=== PATIENT | female | born 1940 | race Caucasian/White ===

== ENCOUNTER 2024-11-12 06:03 | Observation (INO) ==
--- NOTE | 2024-11-12 06:12 | Emergency Department Note ---
HPI - General Adult General Chief complaint: SOB -Shortness of Breath Stated complaint: SHORTNESS OF BREATH Time Seen by Provider: 11/12/24 06:06 Source: caregiver Mode of arrival: walk-in Limitations: no limitations History of Present Illness HPI narrative: This is a 84 year old female patient that [facility] staff patient has hx of pnenumonia, and RSV and her O2 sats have been 85% RA for them. On arrival to the ER here patients O2 sat was 86-90%RA. patient has a hx of dementia Related Data Home Medications Medication Instructions Recorded Confirmed acetaminophen 650 mg 650 mg PO Q6H PRN pain 11/01/24 11/01/24 tablet,extended release (8HR Muscle Aches-Pain) alprazolam 0.5 mg tablet 0.5 mg PO DAILY 11/01/24 11/01/24 amlodipine 5 mg tablet 5 mg PO DAILY 11/01/24 11/01/24 aspirin 325 mg tablet 325 mg PO DAILY 11/01/24 11/01/24 cyanocobalamin (vitamin B-12) 1,000 mcg IM Q30D 11/01/24 11/01/24 1,000 mcg/mL injection solution dextran 70-hypromellose eye drops 1 drp ophthalmic (eye) Q6H PRN dry 11/01/24 11/01/24 (Artificial Tears (dextran eye(s) 70-hypromellose) eye drops) diclofenac sodium 1 % topical gel 2 g topical TID 11/01/24 11/01/24 docusate sodium 50 mg/5 mL oral 100 mg PO DAILY 11/01/24 11/01/24 liquid famotidine 40 mg tablet 40 mg PO DAILY 11/01/24 11/01/24 fluoxetine 40 mg capsule 40 mg PO DAILY 11/01/24 11/01/24 glipizide 5 mg tablet 5 mg PO BIDWM 11/01/24 11/01/24 guaifenesin 100 mg/5 mL oral 200 mg PO Q6H PRN cough 11/01/24 11/01/24 liquid (Emily-Tussin) insulin aspart 1 sliding scale dose subcut ACHS 11/01/24 11/01/24 (niacinamide)(U-100) 100 unit/mL(3 mL) subcutaneous pen (Fiasp FlexTouch U-100 Insulin) insulin glargine 100 unit/mL (3 20 unit subcut BID 11/01/24 11/01/24 mL) subcutaneous pen (Basaglar KwikPen U-100 Insulin) losartan 100 mg tablet 100 mg PO DAILY 11/01/24 11/01/24 meloxicam 7.5 mg tablet 7.5 mg PO QDCC 11/01/24 11/01/24 memantine 10 mg tablet 10 mg PO BID 11/01/24 11/01/24 nystatin 100,000 unit/gram topical 1 applic topical Q12H 11/01/24 11/01/24 powder rivastigmine tartrate 3 mg capsule 3 mg PO BID 11/01/24 11/01/24 sitagliptin phosphate 50 mg tablet 50 mg PO DAILY 11/01/24 11/01/24 (Januvia) Previous Rx's Medication Instructions Recorded albuterol sulfate 90 mcg/actuation 2 puff inhalation Q6H rsv #8.5 11/04/24 aerosol inhaler grams famotidine 40 mg tablet (Pepcid) 40 mg PO BID gerd #20 tabs 11/04/24 levofloxacin 500 mg tablet 500 mg PO Q24H pneumonia #4 tabs 11/04/24 Allergies Allergy/AdvReac Type Severity Reaction Status Date / Time No Known Drug Allergies Allergy Verified 11/12/24 06:19 Review of Systems Status of ROS unobtainable due to mental status [facility] Medical History (Updated 11/07/24 @ 00:00 by ) Chronic ethmoidal sinusitis Diaphragmatic hernia Depression Dementia Vitamin B12 deficiency (dietary) anemia Hx of constipation Dysphagia Osteoarthritis Pacemaker GERD (gastroesophageal reflux disease) ADALGISA (generalized anxiety disorder) HTN (hypertension) HLD (hyperlipidemia) DM (diabetes mellitus) Alzheimer disease Social History Smoking status: never smoker Problems where you live: no known problems Highest level of school completed/degree received: decline to answer Feel stressed/tense/nervous/anxious/difficulty sleeping: not at all Life stressor details: unable to answer although patient is anxious alot Exam Constitutional: normal general appearance and no apparent distress Vital Signs - 24 hr 11/12/24 06:03 11/12/24 06:18 11/12/24 06:42 Temperature 98.7 F Pulse Rate 97 H 89 Respiratory Rate 24 20 Blood Pressure 131/64 131/64 Pulse Oximetry 90 L 93 L 98 Oxygen Delivery Me thod Room Air Nasal Cannula Oxygen Flow Rate 2 HENMT: normocephalic, head/scalp atraumatic, hearing grossly normal bilaterally, external ears normal, nasal mucous membranes normal, external nose normal, oral mucous membranes normal and oropharynx normal Eyes: PERRL, EOMs intact bilaterally, conjunctivae normal and no scleral icterus Neck/C-Spine: visual inspection normal and trachea midline Lymph: no lymphadenopathy noted Chest: inspection of chest normal Respiratory: breath sounds equal bilaterally, normal respiratory effort, aus cultation abnormal (diminished breath sound), wheezing noted (scattered wheezes), no rales, no retractions, no use of accessory muscles and chest percussion normal Cardiovascular: normal heart rate noted, regular rhythm noted, no gallop, no rub, no murmur, no JVD, no clicks, peripheral pulses 2+ throughout, no bruits noted and no additional abnormal heart sounds Gastrointestinal: abdomen normal to inspection, abdomen soft to palpation, nontender to palpation, nontender to percussion, nondistended, normoactive bowel sounds, no hepatosplenomegaly, no masses, no pulsatile mass, no ascites and no hernia Back/Pelvis: spine normal to inspection Extremities: normal to inspection, normal to palpation, no tenderness, full ROM, no joint enlargement and no deformity Neurology: Alert, verbal with confusion (normal for patient per NH staff hx of dementia) Psychiatry: Alert, verbal with confusion (normal for patient per NH staff hx of dementia) Skin: skin color normal Course Course Hospital Course: 714: Spoke to son Chico Tsang and informed him the patient was here ( his mom) and that her pneumonia was worse and needed to be transferred for pulmonology services and possible bronchoscopy. Son stated he did not want his mom transferred at this time and did not want his mom to have a bronchoscopy at this time and that is she worsens he will think about it but at this time he does not want either transfer or bronchoscopy. Patient resting comfortably, VSS, no s/s of acute distress noted. O2 sat 94% 2LNC. Spoke to Dr Kirkpatrick about the case and the sons wishes and she has accepted patient to the medical floor for further evaluation and treatment Vital Signs Vital signs: Vital Signs Temperature 98.7 F 11/12/24 06:03 Pulse Rate 97 H 11/12/24 06:03 Respiratory Rate 24 11/12/24 06:03 Blood Pressure 131/64 11/12/24 06:03 Pulse Oximetry 90 L 11/12/24 06:03 Oxygen Delivery Method Room Air 11/12/24 06:03 Temperature 98.7 F 11/12/24 06:03 Pulse Rate 89 11/12/24 06:42 Respiratory Rate 20 11/12/24 06:42 Blood Pressure 131/64 11/12/24 06:42 Pulse Oximetry 98 11/12/24 06:42 Oxygen Delivery Method Nasal Cannula 11/12/24 06:42 Oxygen Flow Rate 2 11/12/24 06:42 Medical Decision Making Differential Diagnosis Differential Diagnosis: viral illness, URI, bronchitis, pneumonia Medical Records Medical records reviewed: Yes I reviewed the patient's medical records Lab Data Lab results reviewed: Yes I reviewed the patient's lab results Labs: Lab Results 11/12/24 11/12/24 Range/Units 06:15 06:25 WBC 14.5 H (4.3-9.3) K/uL RBC 3.5 L (4.00-5.50) M/uL Hgb 10.0 L (12.5-15.8) gm/dL Hct 30.4 L (35.9-46.7) % MCV 87.0 (81.0-93.7) fl MCH 28.6 (27.6-32.2) pg MCHC 32.9 L (33.1-35.3) g/dl RDW 14.2 (11.4-14.2) % Plt Count 276 (152-353) K/uL MPV 8.0 (6.9-10.8) fl Gran % 86.3 H (47.8-71.3) % Lymph % (Auto) 5.3 L (20.0-43.0) % [place] % (Auto) 5.4 (3.6-9.8) % Eos % (Auto) 2.6 (0.4-2.8) % Baso % (Auto) 0.4 (0.1-0.85) Lymph # (Auto) 0.8 L (1.1-3.1) [place] # (Auto) 0.8 L (1.1-3.1) Eos # (Auto) 0.4 H (0.0-0.2) Baso # (Auto) 0.1 (0.0-0.1) Absolute Gran (auto) 12.6 H (2.3-6.0) Sodium 139 (136-145) mmol/L Potassium 4.3 (3.6-5.2) mmol/L Chloride 105.0 (98-107) mmol/L Carbon Dioxide 23 (21-32) mmol/L Anion Gap 11.0 (4-14) mEq/L BUN 19 H (7-18) mg/dL Creatinine 1.4 H (0.6-1.3) mg/dL Estimated GFR 37.6 (>59.9) Glucose 148 H (70-110) mg/dL Calcium 8.8 (8.5-10.1) mg/dL Total Bilirubin 0.45 (0.0-1.0) mg/dL AST 20 (15-37) U/L ALT 11 L (30-65) U/L Alkaline Phosphatase 123 (50-136) U/L Troponin I High Sens 29.20 (4.0-60.4) ng/L B-Natriuretic Peptide 474.0 H (0-100) pg/mL Total Protein 7.3 (6.4-8.2) g/dL Albumin 2.1 L (3.4-5.0) g/dL Influenza Type A Ag Negative (Negative) Influenza Type B Ag Negative (Negative) Respiratory Virus Ag Positive (Negative) Imaging Data Chest x-ray: Attestation: I have reviewed the pertinent imaging results. ECG Data Attestation: I have reviewed the pertinent ECG results. Discharge Plan Discharge Patient Disposition: Admitted As Observation Condition: Stable Chief Complaint: SOB -Shortness of Breath Clinical Impression: Pneumonia, Hypoxia, Dementia Prescriptions: No Action alprazolam 0.5 mg tablet 0.5 mg PO DAILY glipizide 5 mg tablet 5 mg PO BIDWM insulin glargine [Basaglar KwikPen U-100 Insulin] 100 unit/mL (3 mL) insulin pen 20 unit SUBCUT BID Fiasp FlexTouch U-100 Insulin 100 unit/mL (3 mL) insulin pen 1 sliding scale dose SUBCUT ACHS guaifenesin [Emily-Tussin] 100 mg/5 mL liquid 200 mg PO Q6H PRN (Reason: cough) nystatin 100,000 unit/gram powder 1 applic topical Q12H fluoxetine 40 mg capsule 40 mg PO DAILY diclofenac sodium 1 % gel 2 g TOPICAL TID Patient Comments: APPLY TO 2GM LINE AND APPLY TO PAINFUL AREAS 3 TIMES A DAY--RUB IN WELL--- docusate sodium 50 mg/5 mL liquid 100 mg PO DAILY Januvia 50 mg tablet 50 mg PO DAILY cyanocobalamin (vitamin B-12) 1,000 mcg/mL solution 1,000 mcg IM Q30D Patient Comments: DUE ON THE 7TH OF EACH MONTH Artificial Tears([id number]) Drops 1 drp ophthalmic (eye) Q6H PRN (Reason: dry eye(s)) Rx Instructions: BOTH EYES amlodipine 5 mg tablet 5 mg PO DAILY famotidine 40 mg tablet 40 mg PO DAILY losartan 100 mg tablet 100 mg PO DAILY acetaminophen [8HR Muscle Aches-Pain] 650 mg tablet extended release 650 mg PO Q6H PRN (Reason: pain) meloxicam 7.5 mg tablet 7.5 mg PO QDCC aspirin 325 mg tablet 325 mg PO DAILY rivastigmine tartrate 3 mg capsule 3 mg PO BID memantine 10 mg tablet 10 mg PO BID levofloxacin 500 mg tablet 500 mg PO Q24H Qty: 4 0RF famotidine [Pepcid] 40 mg tablet 40 mg PO BID Qty: 20 0RF albuterol sulfate 90 mcg/actuation HFA aerosol inhaler 2 puff inhalation Q6H Qty: 8.5 0RF Rx Instructions: with a spacer Print Language: Czech Referrals: Omid Stratton MD [Primary Care Provider] - Time of Disposition: 07:24
[2024-11-12] MEDS: IPRATROPIUM/ALBUTEROL SULFATE 3 ML AMPUL.NEB INH ONE (06:18)
[2024-11-12] MEDS: BUDESONIDE 0.5 MG/2 ML AMPUL.NEB INH ONE (06:18)
[2024-11-12 06:30] LABS: Basophils #(Absolute) Auto 0.1 (0.0-0.1); Basophils%(Percent) Auto 0.4 (0.1-0.85); Eosinophils#(Absolute)Auto 0.4 (0.0-0.2); Eosinophils%(Percent) Auto 2.6 % (0.4-2.8); Granulocytes % - Auto 86.3 % (47.8-71.3); Granulocytes#(Absolute)- Auto 12.6 (2.3-6.0); Hematocrit 30.4 % (35.9-46.7); Monocytes #(Absolute)- Auto 0.8 (1.1-3.1); Monocytes %(Percent)- Auto 5.4 % (3.6-9.8); Platelet Count 276 K/uL (152-353); White Blood Count 14.5 K/uL (4.3-9.3)
[2024-11-12] MEDS: METHYLPREDNISOLONE SOD SUCC/PF 125 MG/2 ML VIAL IVP ONE (06:37)
[2024-11-12 06:39] LABS: Potassium 4.3 mmol/L (3.6-5.2)
[2024-11-12] MEDS ORDERED: 0.9 % SODIUM CHLORIDE 50 ML IV ONE (07:22)
[2024-11-12] MEDS ORDERED: CEFTRIAXONE SODIUM 1 GM VIAL ONE (07:22)
[2024-11-12] MEDS ORDERED: AZITHROMYCIN 500 MG VIAL ONE (07:22)
[2024-11-12] MEDS ORDERED: 0.9 % SODIUM CHLORIDE 250 ML IV ONE (07:22)
[2024-11-12] MEDS: AZITHROMYCIN 500 MG 500 MG in 0.9 % SODIUM CHLORIDE 250 ML IV ONE (07:29)
[2024-11-12] MEDS: CEFTRIAXONE SODIUM 1 GM in 0.9 % SODIUM CHLORIDE MB+ 50 ML IV STA (07:29)
[2024-11-12] MEDS: IPRATROPIUM/ALBUTEROL SULFATE 3 ML AMPUL.NEB INH SCH ×2 (12:04→15:42)
[2024-11-12 12:30] LABS: PCO2 ABG 31 mmHg (35-45); PO2 ABG 69 mmHg (60-100); pH ABG 7.44 (7.35-7.45)
[2024-11-12 12:31] LABS: Base Excess ABG -2.2 mmo1/L (-2-2); Oxygen Saturation ABG 94 % (92-100)
[2024-11-12] MEDS: FLUOXETINE HCL 20 MG CAPSULE PO SCH (13:00)
[2024-11-12] MEDS: AMLODIPINE BESYLATE 5 MG TABLET PO SCH (13:00)
[2024-11-12] MEDS: RIVASTIGMINE TARTRATE 1.5 MG CAPSULE PO SCH (13:00)
[2024-11-12] MEDS: ENOXAPARIN SODIUM 40 MG/0.4 ML SYRINGE SUBQ SCH (13:00)
[2024-11-12] MEDS ORDERED: MAGNESIUM, ALUMINUM HYDROXIDE 30 ML ORAL.SUSP PO PRN (13:00)
[2024-11-12] MEDS ORDERED: bisacodyL 10 MG SUPP.RECT PR PRN (13:00)
[2024-11-12] MEDS ORDERED: ACETAMINOPHEN 500 MG TABLET PO PRN (13:00)
[2024-11-12] MEDS: ASPIRIN 325 MG TABLET PO SCH (13:00)
[2024-11-12] MEDS: SITAGLIPTIN PHOSPHATE 50 MG TABLET PO SCH (13:00)
[2024-11-12] MEDS: MEMANTINE HCL 5 MG TABLET PO SCH (13:00)
[2024-11-12] MEDS: LOSARTAN POTASSIUM 50 MG TABLET PO SCH (13:00)
[2024-11-12] MEDS: VANCOMYCIN HCL 500 MG 500 MG in 0.9 % SODIUM CHLORIDE MB+ 100 ML IV SCH (15:00)
[2024-11-12] MEDS: GLIMEPIRIDE 2 MG TABLET PO SCH (16:30)
[2024-11-12] MEDS ORDERED: GLIPIZIDE 5 MG PO SCH (16:30)
--- NOTE | 2024-11-12 17:12 | History & Physical Report ---
H&P: HPI History of Present Illness Chief complaint: worsening of pneumonia, hypoxia Narrative: This is a 84 year old female patient that presents to the ER from the assisted with c/o per assisted staff patient has hx of pneumonia, and RSV and her O2 sats have been 85% RA for them. On arrival to the ER here patients O2 sat was 86-90% RA. patient has a hx of dementia. Admitted patient to med/surg for further observation and treatment. Review of Systems Status of ROS unobtainable due to mental status PFSH PFS Medical History Chronic ethmoidal sinusitis Diaphragmatic hernia Depression Dementia Vitamin B12 deficiency (dietary) anemia Hx of constipation Dysphagia Osteoarthritis Pacemaker GERD (gastroesophageal reflux disease) ADALGISA (generalized anxiety disorder) HTN (hypertension) HLD (hyperlipidemia) DM (diabetes mellitus) Alzheimer disease Social History Smoking status: never smoker Problems where you live: no known problems Highest level of school completed/degree received: high school Feel stressed/tense/nervous/anxious/difficulty sleeping: not at all Life stressor details: unable to answer although patient is anxious alot Meds Home Medications and Allergies Home Medications Medication Instructions Recorded Confirmed Type acetaminophen 650 mg 650 mg PO Q6H PRN pain 11/01/24 11/12/24 History tablet,extended release (8HR Muscle Aches-Pain) alprazolam 0.5 mg tablet 0.5 mg PO Q24H PRN anxiety 11/01/24 11/12/24 History amlodipine 5 mg tablet 5 mg PO DAILY 11/01/24 11/12/24 History aspirin 325 mg tablet 325 mg PO DAILY 11/01/24 11/12/24 History cyanocobalamin (vitamin B-12) 1,000 mcg IM Q30D 11/01/24 11/12/24 History 1,000 mcg/mL injection solution dextran 70-hypromellose eye drops 1 drp ophthalmic (eye) Q6H PRN dry 11/01/24 11/12/24 History (Artificial Tears (dextran eye(s) 70-hypromellose) eye drops) diclofenac sodium 1 % topical gel 2 g topical TID 11/01/24 11/12/24 History docusate sodium 50 mg/5 mL oral 100 mg PO DAILY 11/01/24 11/12/24 History liquid famotidine 40 mg tablet 40 mg PO DAILY 11/01/24 11/12/24 History fluoxetine 40 mg capsule 40 mg PO DAILY 11/01/24 11/12/24 History glipizide 5 mg tablet 5 mg PO BIDWM 11/01/24 11/12/24 History guaifenesin 100 mg/5 mL oral 200 mg PO Q6H PRN cough 11/01/24 11/12/24 History liquid (Emily-Tussin) insulin aspart 1 sliding scale dose subcut ACHS 11/01/24 11/12/24 History (niacinamide)(U-100) 100 unit/mL(3 mL) subcutaneous pen (Fiasp FlexTouch U-100 Insulin) insulin glargine 100 unit/mL (3 20 unit subcut BID 11/01/24 11/12/24 History mL) subcutaneous pen (Basaglar KwikPen U-100 Insulin) losartan 100 mg tablet 100 mg PO DAILY 11/01/24 11/12/24 History memantine 10 mg tablet 10 mg PO BID 11/01/24 11/12/24 History nystatin 100,000 unit/gram topical 1 applic topical Q12H 11/01/24 11/12/24 History powder rivastigmine tartrate 3 mg capsule 3 mg PO BID 11/01/24 11/12/24 History sitagliptin phosphate 50 mg tablet 50 mg PO DAILY 11/01/24 11/12/24 History (Januvia) albuterol sulfate 90 mcg/actuation 2 puff inhalation Q6H rsv #8.5 11/04/24 11/12/24 Rx aerosol inhaler grams Allergies Allergy/AdvReac Type Severity Reaction Status Date / Time No Known Drug Allergies Allergy Verified 11/12/24 06:19 Exam Exam: Patient in roy's position upon entering room for exam. Constitutional: normal general appearance, no apparent distress, abnormal body habitus (overweight), limitations noted (altered mental status) and alert Vital Signs - 24 hr 11/12/24 06:03 11/12/24 06:18 11/12/24 06:42 Temperature 98.7 F Pulse Rate 97 H 89 Respiratory Rate 24 20 Blood Pressure 131/64 131/64 Pulse Oximetry 90 L 93 L 98 Oxygen Delivery Me thod Room Air Nasal Cannula Oxygen Flow Rate 2 11/12/24 07:45 11/12/24 08:45 11/12/24 09:40 Temperature Pulse Rate 94 H 88 88 Respiratory Rate 20 20 Blood Pressure 116/69 121/60 116/55 Pulse Oximetry 91 L 94 L 94 L Oxygen Delivery Me thod Nasal Cannula Nasal Cannula Nasal Cannula Oxygen Flow Rate 2 2 2 11/12/24 12:08 11/12/24 15:43 Temperature Pulse Rate Respiratory Rate Blood Pressure Pulse Oximetry 96 94 L Oxygen Delivery Me thod Oxygen Flow Rate HENMT: normocephalic, head/scalp atraumatic, hearing grossly normal bilaterally, external ears normal, nasal mucous membranes normal, external nose normal, oral mucous membranes normal and oropharynx normal Eyes: PERRL, EOMs intact bilaterally, conjunctivae normal and no scleral icterus Neck/C-Spine: visual inspection normal and trachea midline Lymph: no lymphadenopathy noted Chest: inspection of chest normal Respiratory: breath sounds equal bilaterally, normal respiratory effort, auscultation abnormal (diminished breath sound), wheezing noted (scattered wheezes), no rales, no retractions, no use of accessory muscles and chest per cussion normal Cardiovascular: normal heart rate noted, regular rhythm noted, no gallop, no rub, no murmur, no JVD, no clicks, peripheral pulses 2+ throughout, no bruits noted and no additional abnormal heart sounds Gastrointestinal: abdomen normal to inspection, abdomen soft to palpation, nontender to palpation, nontender to percussion, nondistended, normoactive bowel sounds, no hepatosplenomegaly, no masses, no pulsatile mass, no ascites and no hernia Back/Pelvis: spine normal to inspection Extremities: normal to inspection, normal to palpation, no tenderness, full ROM, no joint enlargement and no deformity Neurology: Alert, verbal with confusion (normal for patient per NH staff hx of dementia) Psychiatry: Alert, verbal with confusion (normal for patient per NH staff hx of dementia) Skin: skin color normal Assessment and Plan Assessment and Plan (1) Pneumonia: Qualifiers: Pneumonia type: due to unspecified organism Laterality: bilateral Lung location: lower lobe of lung Qualified Code(s): J18.9 - Pneumonia, unspecified organism Code(s): J18.9 - Pneumonia, unspecified organism (2) Hypoxia: Code(s): R09.02 - Hypoxemia (3) AMS (altered mental status): Qualifiers: Altered mental status type: somnolence Qualified Code(s): R40.0 - Somnolence Code(s): R41.82 - Altered mental status, unspecified (4) Dementia: Qualifiers: Dementia type: vascular dementia Dementia severity: severe Dementia behavioral or psychological symptom: unspecified whether behavioral, psychotic, or mood disturbance or anxiety Qualified Code(s): F01.C0 - Vascular dementia, severe, without behavioral disturbance, psychotic disturbance, mood disturbance, and anxiety Code(s): F03.90 - Unspecified dementia, unspecified severity, without behavioral disturbance, psychotic disturbance, mood disturbance, and anxiety (5) Anemia: Qualifiers: Anemia type: unspecified type Qualified Code(s): D64.9 - Anemia, unspecified Code(s): D64.9 - Anemia, unspecified (6) Hypoalbuminemia: Code(s): E88.09 - Other disorders of plasma-protein metabolism, not elsewhere classified (7) Chronic ethmoidal sinusitis: Code(s): J32.2 - Chronic ethmoidal sinusitis (8) Right maxillary sinusitis: Code(s): J32.0 - Chronic maxillary sinusitis Plan Sodium Chloride 1,000 mls @ 100 mls/hr IV CONT Amlodipine Besylate 5 mg PO DAILY Aspirin 325 mg PO DAILY Fluoxetine Hcl 40 mg PO DAILY Losartan Potassium 100 mg PO DAILY Memantine 10 mg PO BID Sitagliptin Phosphate 50 mg PO DAILY Rivastigmine Tartrate 3 mg PO BID Ceftriaxone Sodium 1 gm in Sodium Chloride 50 mls/hr IV DAILY Azithromycin 500 mg in Sodium Chloride 250 mls @ 250 mls/hr IV DAILY Methylprednisolone Sodium Succinate 40 mg INJ Q8H Pantoprazole Sodium 40 mg PO BID Vancomycin Hcl 500 mg in Sodium Chloride 100 mls @ 200 mls/hr IV Q12H Enoxaparin Sodium 40 mg SUBQ 1200 Albuterol Sulfate 3 ml INH RQ4 Insulin Glargine-Yfgn 20 unit SUBQ BID Glimepiride 2 mg PO BIDWM Acetaminophen 500 mg PO Q6H PRN Magnesium Hydroxide 30 ml PO DAILY PRN Bisacodyl 10 mg TN DAILY PRN Results Labs Labs: CBC WBC 14.5 K/uL (4.3-9.3) H 11/12/24 06:25 RBC 3.5 M/uL (4.00-5.50) L 11/12/24 06:25 Hgb 10.0 gm/dL (12.5-15.8) L 11/12/24 06:25 Hct 30.4 % (35.9-46.7) L 11/12/24 06:25 MCV 87.0 fl (81.0-93.7) 11/12/24 06:25 MCH 28.6 pg (27.6-32.2) 11/12/24 06: MCHC 32.9 g/dl (33.1-35.3) L 11/12/24 06:25 RDW 14.2 % (11.4-14.2) 11/12/24 06:25 Plt Count 276 K/uL (152-353) 11/12/24 06:25 MPV 8.0 fl (6.9-10.8) 11/12/24 06: Gran % 86.3 % (47.8-71.3) H 11/12/24 06:25 Lymph % (Auto) 5.3 % (20.0-43.0) L 11/12/24 06:25 [place] % (Auto) 5.4 % (3.6-9.8) 11/12/24 06:25 Eos % (Auto) 2.6 % (0.4-2.8) 11/12/24 06:25 Baso % (Auto) 0.4 (0.1-0.85) 11/12/24 06:25 Lymph # (Auto) 0.8 (1.1-3.1) L 11/12/24 06:25 [place] # (Auto) 0.8 (1.1-3.1) L 11/12/24 06:25 Eos # (Auto) 0.4 (0.0-0.2) H 11/12/24 06:25 Baso # (Auto) 0.1 (0.0-0.1) 11/12/24 06:25 Absolute Gran (auto) 12.6 (2.3-6.0) H 11/12/24 06:25 BMP Sodium 139 mmol/L (136-145) 11/12/24 06:25 Potassium 4.3 mmol/L (3.6-5.2) 11/12/24 06:25 Chloride 105.0 mmol/L (98-107) 11/12/24 06:25 Carbon Dioxide 23 mmol/L (21-32) 11/12/24 06:25 Anion Gap 11.0 mEq/L (4-14) 11/12/24 06:25 BUN 19 mg/dL (7-18) H 11/12/24 06:25 Creatinine 1.4 mg/dL (0.6-1.3) H 11/12/24 06:25 Estimated GFR 37.6 (>59.9) 11/12/24 06:25 Glucose 148 mg/dL (70-110) H 11/12/24 06:25 Calcium 8.8 mg/dL (8.5-10.1) 11/12/24 06:25 Phosphorus 4.4 mg/dL (2.5-4.9) 11/12/24 12:10 Magnesium 2.0 mg/dL (1.8-2.4) 11/12/24 12:10 Total Bilirubin 0.45 mg/dL (0.0-1.0) 11/12/24 06:25 AST 20 U/L (15-37) 11/12/24 06:25 ALT 11 U/L (30-65) L 11/12/24 06:25 Alkaline Phosphatase 123 U/L (50-136) 11/12/24 06:25 Total Protein 7.3 g/dL (6.4-8.2) 11/12/24 06:25 Albumin 2.1 g/dL (3.4-5.0) L 11/12/24 06:25 Cardiac Enzymes Troponin I High Sens 24.40 ng/L (4.0-60.4) 11/12/24 12:10 Liver Function Total Bilirubin 0.45 mg/dL (0.0-1.0) 11/12/24 06:25 AST 20 U/L (15-37) 11/12/24 06:25 ALT 11 U/L (30-65) L 11/12/24 06:25 Alkaline Phosphatase 123 U/L (50-136) 11/12/24 06:25 Total Protein 7.3 g/dL (6.4-8.2) 11/12/24 06:25 Albumin 2.1 g/dL (3.4-5.0) L 11/12/24 06:25 ABG ABG results: 11/12/24 11:46 ABG pH 7.44 ABG pCO2 31 L ABG pO2 161 ABG HCO3 21.1 L ABG Total CO2 22.1 ABG O2 Saturation 94 ABG Base Excess -2.2 L Imaging Imaging ordered: Chest x-ray Radiologist's impression: XR CHEST 1V Date of Service: 11/12/24 HISTORY: SOB; PT WAS BROUGHT TO ER FROM [facility] WITH LOW 02. SOB. COMPARISON STUDY: 11/03/2024 TECHNIQUE: One view FINDINGS: Heart size is normal for technique. Left-sided dual lead pacemaker. Worsening bilateral infiltrates right greater than left. No pneumothorax. Hilar and mediastinal structures and bony structures are unchanged. Oxygen tubing projects over the chest. IMPRESSION: Worsening bilateral infiltrates. Follow-up recommended
[2024-11-12] MEDS: INSULIN GLARGINE SUBQ SCH (17:15)
[2024-11-12] MEDS: 0.9 % SODIUM CHLORIDE 1000 ML 1,000 ML IV SCH (18:00)
[2024-11-12 18:37] LABS: Urine Appearance CLEAR (CLEAR); Urine Blood 2+ (NEG - TRACE); Urine Color YELLOW (STRAW/YELL.); Urine Urobilinogen Normal (NORMAL)
[2024-11-12] MEDS: METHYLPREDNISOLONE SOD SUCC/PF 40 MG/ML VIAL INJ SCH (18:53)
[2024-11-12 19:39] LABS: Urine Amorphous Sediment Few (Negative); Urine Yeast Negative (Negative)
[2024-11-12] MEDS: PANTOPRAZOLE SODIUM 40 MG TABLET.DR PO SCH (20:19)
[2024-11-12] MEDS: INSULIN GLARGINE-YFGN 100 UNIT/ML INSULN.PEN SUBQ SCH (21:00)
[2024-11-13 04:49] LABS: Basophils%(Percent) Auto 0.2 (0.1-0.85); Granulocytes % - Auto 92.3 % (47.8-71.3); Granulocytes#(Absolute)- Auto 11.3 (2.3-6.0); Hematocrit 31.4 % (35.9-46.7); Monocytes #(Absolute)- Auto 0.4 (1.1-3.1); Monocytes %(Percent)- Auto 3.3 % (3.6-9.8); Platelet Count 307 K/uL (152-353); White Blood Count 12.2 K/uL (4.3-9.3)
[2024-11-13 05:33] LABS: Potassium 4.4 mmol/L (3.6-5.2)
[2024-11-13] MEDS: CEFTRIAXONE SODIUM 1 GM in 0.9 % SODIUM CHLORIDE MB+ 50 ML IV SCH (06:37)
[2024-11-13] MEDS ORDERED: METHYLPREDNISOLONE SOD SUCC/PF 40 MG/ML VIAL INJ SCH (09:00)
[2024-11-13] MEDS ORDERED: ALBUMIN HUMAN 25% 100 ML IV SCH (10:00)
[2024-11-13] MEDS: FLUCONAZOLE-NACL 200 MG/100 ML 200 MG/100 ML PIGGYBACK IV SCH (10:32)
[2024-11-13] MEDS: AZITHROMYCIN 500 MG 500 MG in 0.9 % SODIUM CHLORIDE 250 ML IV SCH (10:35)
[2024-11-13] MEDS: NYSTATIN TOPICAL SCH (10:36)
--- NOTE | 2024-11-13 17:24 | Progress Note ---
Progress Note: Subjective Subjective Interval history: Day two of hospital stay, patient stays in wheelchair most of the day, sitting at door to room watching people go by. Patient is tearful intermittently. BN- Peptide is elevated at 609. Patient O2 has been weaned down to 1Lpm [place]. Nurse reports excoriated and yeast in perineum area. Breath sounds have improved from previous day, WBC is elevated. Exam Exam: Patient sitting up in wheelchair with baby doll upon entering room for exam. Constitutional: abnormal general appearance (chronically ill), no apparent distress, abnormal body habitus (overweight), limitations noted (altered mental status) and alert Vital Signs - 24 hr 11/12/24 17:53 11/12/24 19:37 11/12/24 19:37 Temperature 96.2 F L Pulse Rate [Left C arotid] 89 Respiratory Rate 19 Blood Pressure [Ri ght Arm] 130/66 Pulse Oximetry 93 L 96 96 Oxygen Delivery Me thod Nasal Cannula Nasal Cannula Oxygen Flow Rate 2 2 Fraction of Inspir ed Oxygen 28 11/12/24 20:00 11/13/24 00:00 11/13/24 08:00 Temperature 98.7 F 98.7 F 98.4 F Pulse Rate [Left C arotid] 67 118 H 85 Respiratory Rate 18 20 19 Blood Pressure [Ri ght Arm] 109/47 176/89 128/69 Pulse Oximetry 100 96 93 L Oxygen Delivery Me thod High Flow Nasal Ca nnula Nasal Cannula Oxygen Flow Rate 2 Fraction of Inspir ed Oxygen 11/13/24 08:35 11/13/24 12:00 11/13/24 15:32 Temperature 97.7 F Pulse Rate [Left C arotid] 105 H Respiratory Rate 19 Blood Pressure [Ri ght Arm] 125/57 Pulse Oximetry 94 L 93 L 100 Oxygen Delivery Me thod Room Air Oxygen Flow Rate Fraction of Inspir ed Oxygen HENMT: normocephalic, head/scalp atraumatic, hearing grossly normal bilaterally, external ears normal, nasal mucous membranes normal, external nose normal, oral mucous membranes normal and oropharynx normal Eyes: PERRL, EOMs intact bilaterally, conjunctivae normal and no scleral icterus Neck/C-Spine: visual inspection normal and trachea midline Lymph: no lymphadenopathy noted Chest: inspection of chest normal Respiratory: breath sounds equal bilaterally, normal respiratory effort, auscultation abnormal (improving) (diminished breath sound), wheezing noted (scattered wheezes), no rales, no retractions, no use of accessory muscles and chest percussion normal Cardiovascular: normal heart rate noted, regular rhythm noted, no gallop, no rub, no murmur, no JVD, no clicks, peripheral pulses 2+ throughout, no bruits noted and no additional abnormal heart sounds Gastrointestinal: abdomen normal to inspection, abdomen soft to palpation, nontender to palpation, nontender to percussion, nondistended, normoactive bowel sounds, no hepatosplenomegaly, no masses, no pulsatile mass, no ascites and no hernia Back/Pelvis: spine normal to inspection Extremities: normal to inspection, normal to palpation, no tenderness, full ROM, no joint enlargement and no deformity Neurology: Alert, verbal with confusion (normal for patient per NH staff hx of dementia) Psychiatry: Alert, verbal with confusion (normal for patient per NH staff hx of dementia) Skin: skin color normal Progress Note: Objective Labs Labs: CBC WBC 12.2 K/uL (4.3-9.3) H 11/13/24 04:27 RBC 3.6 M/uL (4.00-5.50) L 11/13/24 04:27 Hgb 10.3 gm/dL (12.5-15.8) L 11/13/24 04:27 Hct 31.4 % (35.9-46.7) L 11/13/24 04:27 MCV 88.0 fl (81.0-93.7) 11/13/24 04:27 MCH 28.9 pg (27.6-32.2) 11/13/24 04:27 MCHC 32.9 g/dl (33.1-35.3) L 11/13/24 04:27 RDW 14.9 % (11.4-14.2) H 11/13/24 04:27 Plt Count 307 K/uL (152-353) 11/13/24 04:27 MPV 9.0 fl (6.9-10.8) 11/13/24 04:27 Gran % 92.3 % (47.8-71.3) H 11/13/24 04:27 Lymph % (Auto) 4.2 % (20.0-43.0) L 11/13/24 04:27 [place] % (Auto) 3.3 % (3.6-9.8) L 11/13/24 04:27 Eos % (Auto) 0.0 % (0.4-2.8) L 11/13/24 04:27 Baso % (Auto) 0.2 (0.1-0.85) 11/13/24 04:27 Lymph # (Auto) 0.5 (1.1-3.1) L 11/13/24 04:27 [place] # (Auto) 0.4 (1.1-3.1) L 11/13/24 04:27 Eos # (Auto) 0.0 (0.0-0.2) 11/13/24 04:27 Baso # (Auto) 0.0 (0.0-0.1) 11/13/24 04:27 Absolute Gran (auto) 11.3 (2.3-6.0) H 11/13/24 04:27 BMP Sodium 139 mmol/L (136-145) 11/13/24 04:27 Potassium 4.4 mmol/L (3.6-5.2) 11/13/24 04:27 Chloride 106.0 mmol/L (98-107) 11/13/24 04:27 Carbon Dioxide 21 mmol/L (21-32) 11/13/24 04:27 Anion Gap 12.0 mEq/L (4-14) 11/13/24 04:27 BUN 33 mg/dL (7-18) H 11/13/24 04:27 Creatinine 1.6 mg/dL (0.6-1.3) H 11/13/24 04:27 Estimated GFR 32.0 (>59.9) 11/13/24 04:27 Glucose 342 mg/dL (70-110) H 11/13/24 04:27 Calcium 8.6 mg/dL (8.5-10.1) 11/13/24 04:27 Phosphorus 4.4 mg/dL (2.5-4.9) 11/13/24 04:27 Magnesium 2.2 mg/dL (1.8-2.4) 11/13/24 04:27 Total Bilirubin 0.22 mg/dL (0.0-1.0) 11/13/24 04:27 AST 23 U/L (15-37) 11/13/24 04:27 ALT 14 U/L (30-65) L 11/13/24 04:27 Alkaline Phosphatase 120 U/L (50-136) 11/13/24 04:27 Total Protein 7.4 g/dL (6.4-8.2) 11/13/24 04:27 Albumin 2.0 g/dL (3.4-5.0) L 11/13/24 04:27 Cardiac Enzymes Troponin I High Sens 24.40 ng/L (4.0-60.4) 11/12/24 12:10 Liver Function Total Bilirubin 0.22 mg/dL (0.0-1.0) 11/13/24 04:27 AST 23 U/L (15-37) 11/13/24 04:27 ALT 14 U/L (30-65) L 11/13/24 04:27 Alkaline Phosphatase 120 U/L (50-136) 11/13/24 04:27 Total Protein 7.4 g/dL (6.4-8.2) 11/13/24 04:27 Albumin 2.0 g/dL (3.4-5.0) L 11/13/24 04:27 Urine Urine Color Yellow (STRAW/YELL.) 11/12/24 18:20 Urine Appearance Clear (CLEAR) 11/12/24 18:20 Ur Specific [place] 1.020 (1.001-1.035) 11/12/24 18:20 Urine Protein 4+ (NEGATIVE) 11/12/24 18:20 Urine Glucose (UA) 4+ (NORMAL) 11/12/24 18:20 Urine Ketones Large (NEGATIVE) 11/12/24 18:20 Urine Occult Blood 2+ (NEG - TRACE) 11/12/24 18:20 Urine Nitrite Negative (NEGATIVE) 11/12/24 18:20 Urine Bilirubin Negative (NEGATIVE) 11/12/24 18:20 Urine Urobilinogen Normal (NORMAL) 11/12/24 18:20 Ur Leukocyte Esterase Negative (NEGATIVE) 11/12/24 18:20 Imaging Chest x-ray: Radiologist's impression: XR CHEST 1V Date of Service: 11/12/24 HISTORY: SOB; PT WAS BROUGHT TO ER FROM [facility] WITH LOW 02. SOB. COMPARISON STUDY: 11/03/2024 TECHNIQUE: One view FINDINGS: Heart size is normal for technique. Left-sided dual lead pacemaker. Worsening bilateral infiltrates right greater than left. No pneumothorax. Hilar and mediastinal structures and bony structures are unchanged. Oxygen tubing projects over the chest. IMPRESSION: Worsening bilateral infiltrates. Follow-up recommended XR CHEST 2V Date of Service: 11/13/24 HISTORY: pneumonia; COMPARISON: November 12, 2024 FINDINGS: The trachea is midline. The cardiac silhouette is mildly enlarged with left- sided pacemaker in place. Mild emphysema is present. There is a slightly improving multifocal pneumonia more pronounced on right side without effusion. The bony thorax is unremarkable. IMPRESSION: Slightly improving multifocal pneumonia. Progress Note: A&P Assessment and Plan (1) Pneumonia: Qualifiers: Pneumonia type: due to unspecified organism Laterality: bilateral Lung location: lower lobe of lung Qualified Code(s): J18.9 - Pneumonia, unspecified organism (2) Hypoxia: (3) AMS (altered mental status): Qualifiers: Altered mental status type: somnolence Qualified Code(s): R40.0 - Somnolence (4) Dementia: Qualifiers: Dementia type: unspecified type Dementia severity: unspecified severity Dementia behavioral or psychological symptom: unspecified whether behavioral, psychotic, or mood disturbance or anxiety Qualified Code(s): F03.90 - Unspecified dementia, unspecified severity, without behavioral disturbance, psychotic disturbance, mood disturbance, and anxiety (5) Anemia: Qualifiers: Anemia type: unspecified type Qualified Code(s): D64.9 - Anemia, unspecified (6) Hypoalbuminemia: (7) Chronic ethmoidal sinusitis: (8) Right maxillary sinusitis: Plan Albumin 100 mls @ 60 mls/hr IV ONCE Ceftriaxone Sodium 1 gm in Sodium Chloride 50 mls @ 100 mls/hr IV Q24H Azithromycin 500 mg in Sodium Chloride 250 mls @ 250 mls/hr IV DAILY Fluconazole 200 mg in 100 mls @ 100 mls/hr IV Q24 Nystatin 1 gm TOPICAL Q8H Fall Risk Details Rhodes Fall Scale Risk Level: High Fall Risk Current Medications: Current Medications Acetaminophen (Acetaminophen 500 Mg Tablet) 500 mg PO Q6H PRN PRN Reason: MILD PAIN SCALE 1-4 Albuterol Sulfate (Ipratropium/Albuterol Sulfate 3 Ml Ampul.Neb) 3 ml INH RQ4 [facility] Last Admin: 11/13/24 15:32 Dose: 3 ml Amlodipine Besylate (Amlodipine Besylate 5 Mg Tablet) 5 mg PO DAILY [facility] Last Admin: 11/13/24 10:33 Dose: 5 mg Aspirin (Aspirin 325 Mg Tablet) 325 mg PO DAILY [facility] Last Admin: 11/13/24 10:34 Dose: 325 mg Bisacodyl (Bisacodyl 10 Mg Supp.Rect) 10 mg [place] DAILY PRN PRN Reason: Constipation Enoxaparin Sodium (Enoxaparin Sodium 40 Mg/0.4 Ml Syringe) 40 mg SUBQ 1200 [facility] Last Admin: 11/13/24 12:00 Dose: 40 mg Fluoxetine HCl (Fluoxetine Hcl 20 Mg Capsule) 40 mg PO DAILY [facility] Last Admin: 11/13/24 10:33 Dose: 40 mg Glimepiride (Glimepiride 2 Mg Tablet) 2 mg PO BIDWM [facility] Last Admin: 11/13/24 10:34 Dose: 2 mg Ceftriaxone Sodium 1 gm/ (Sodium Chloride) 50 mls @ 100 mls/hr IV Q24H [facility] Last Infusion: 11/13/24 07:07 Dose: Infused Azithromycin 500 mg/ Sodium (Chloride) 250 mls @ 250 mls/hr IV DAILY [facility] Stop: 11/14/24 09:59 Last Infusion: 11/13/24 12:35 Dose: Infused Vancomycin HCl 500 mg/ Sodium (Chloride) 100 mls @ 200 mls/hr IV Q12H [facility] Last Admin: 11/13/24 15:32 Dose: 100 mls/hr Sodium Chloride (Sodium Chloride) 1,000 mls @ 100 mls/hr IV CONT [facility] Last Admin: 11/13/24 06:38 Dose: 100 mls/hr Albumin Human (Albumin Human 25%) 100 mls @ 60 mls/hr IV ONCE [facility] Fluconazole (Fluconazole-Nacl 200 Mg/100 Ml) 200 mg in 100 mls @ 100 mls/hr IV Q24H [facility] Last Admin: 11/13/24 10:32 Dose: 100 mls/hr Insulin Glargine-yfgn (Insulin Glargine-Yfgn 100 Unit/Ml Insuln.Pen) 20 unit SUBQ BID [facility] Last Admin: 11/13/24 14:59 Dose: 20 unit Insulin Human Regular (Insulin Regular, Human 100 Unit/Ml) 0 unit SUBQ ACHS PRN ; Protocol PRN Reason: increased blood sugar Last Admin: 11/12/24 23:00 Dose: 12 unit Losartan Potassium (Losartan Potassium 50 Mg Tablet) 100 mg PO DAILY [facility] Last Admin: 11/13/24 10:32 Dose: 100 mg Magnesium Hydroxide (Magnesium, Aluminum Hydroxide 30 Ml Oral.Susp) 30 ml PO DAILY PRN PRN Reason: gerd Memantine (Memantine Hcl 5 Mg Tablet) 10 mg PO BID [facility] Last Admin: 11/13/24 10:32 Dose: 10 mg Methylprednisolone Sodium Succinate (Methylprednisolone Sod Succ/Pf 40 Mg/Ml Vial) 40 mg INJ Q8H [facility] Last Admin: 11/13/24 12:00 Dose: 40 mg Nystatin (Nystatin 15 Gm Cream..G.) 1 gm TOPICAL Q8H [facility] Last Admin: 11/13/24 10:36 Dose: 1 gm Pantoprazole Sodium (Pantoprazole Sodium 40 Mg Tablet.Dr) 40 mg PO BID [facility] Last Admin: 11/13/24 10:34 Dose: 40 mg Rivastigmine Tartrate (Rivastigmine Tartrate 1.5 Mg Capsule) 3 mg PO BID [facility] Last Admin: 11/13/24 10:33 Dose: 3 mg Sitagliptin Phosphate (Sitagliptin Phosphate 50 Mg Tablet) 50 mg PO DAILY [facility] Last Admin: 11/13/24 10:34 Dose: 50 mg Time Spent With Patient Time: Total time spent is greater than 50% in coordination of care (as documented) at patient's floor/unit and/or counseling patient:
[2024-11-14 05:16] LABS: Basophils%(Percent) Auto 0.2 (0.1-0.85); Granulocytes % - Auto 95.1 % (47.8-71.3); Granulocytes#(Absolute)- Auto 12.8 (2.3-6.0); Hematocrit 31.6 % (35.9-46.7); Mean Corpuscular Volume 91.5 fl (81.0-93.7); Monocytes #(Absolute)- Auto 0.3 (1.1-3.1); Monocytes %(Percent)- Auto 2.3 % (3.6-9.8); Platelet Count 302 K/uL (152-353); White Blood Count 13.4 K/uL (4.3-9.3)
[2024-11-14 05:48] LABS: Potassium 4.6 mmol/L (3.6-5.2)
[2024-11-14] MEDS: BUDESONIDE 0.5 MG/2 ML AMPUL.NEB INH ONE (09:26)
[2024-11-14] MEDS: NYSTATIN 15 GM POWDER TOPICAL SCH (13:49)
[2024-11-14] MEDS: FAMOTIDINE 20 MG TABLET PO SCH (13:49)
--- NOTE | 2024-11-14 16:42 | Progress Note ---
Progress Note: Subjective Subjective Interval history: Day three of hospital stay, patient is observed to be improving. Chest X-Ray from 11/13/24 reflects "Slightly improving multifocal pneumonia." Exam Exam: Patient in wheelchair holding baby doll at time of exam. Constitutional: abnormal general appearance (chronically ill), no apparent distress, abnormal body habitus (overweight), limitations noted (altered mental status) and alert Vital Signs - 24 hr 11/13/24 20:00 11/13/24 20:27 11/13/24 23:41 Temperature 97.2 F L Pulse Rate [Left C arotid] 89 Respiratory Rate 21 Blood Pressure Blood Pressure [Ri ght Arm] 130/68 Pulse Oximetry 100 97 91 L Oxygen Delivery Me thod Room Air 11/13/24 23:53 11/14/24 03:49 11/14/24 04:00 Temperature 96.5 F L 97.0 F L Pulse Rate [Left C arotid] 68 84 Respiratory Rate 18 17 Blood Pressure Blood Pressure [Ri ght Arm] 136/55 132/71 Pulse Oximetry 96 89 L 93 L Oxygen Delivery Ga thod Room Air Room Air 11/14/24 08:00 11/14/24 08:54 11/14/24 09:37 Temperature 97.8 F Pulse Rate [Left C arotid] 94 H Respiratory Rate 21 Blood Pressure 105/69 Blood Pressure [Ri ght Arm] 105/69 Pulse Oximetry 90 L 91 L Oxygen Delivery Ga thod Room Air 11/14/24 11:31 11/14/24 12:00 11/14/24 15:29 Temperature 97.9 F Pulse Rate [Left C arotid] 100 H Respiratory Rate 24 Blood Pressure Blood Pressure [Ri ght Arm] 138/61 Pulse Oximetry 92 L 90 L 98 Oxygen Delivery Ga thod Room Air 11/14/24 16:00 Temperature 97.8 F Pulse Rate [Left C arotid] 96 H Respiratory Rate 25 H Blood Pressure Blood Pressure [Ri ght Arm] 166/66 Pulse Oximetry 91 L Oxygen Delivery Ga thod Room Air HENMT: normocephalic, head/scalp atraumatic, hearing grossly normal bilaterally, external ears normal, nasal mucous membranes normal, external nose normal, oral mucous membranes normal and oropharynx normal Eyes: PERRL, EOMs intact bilaterally, conjunctivae normal and no scleral icterus Neck/C-Spine: visual inspection normal and trachea midline Lymph: no lymphadenopathy noted Chest: inspection of chest normal Respiratory: breath sounds equal bilaterally, normal respiratory effort, ausc ultation abnormal (improving) (diminished breath sound), no wheezes, no rales, no retractions, no use of accessory muscles and chest percussion normal Cardiovascular: normal heart rate noted, regular rhythm noted, no gallop, no rub, no murmur, no JVD, no clicks, peripheral pulses 2+ throughout, no bruits noted and no additional abnormal heart sounds Gastrointestinal: abdomen normal to inspection, abdomen soft to palpation, nontender to palpation, nontender to percussion, nondistended, normoactive bowel sounds, no hepatosplenomegaly, no masses, no pulsatile mass, no ascites and no hernia Back/Pelvis: spine normal to inspection Extremities: normal to inspection, normal to palpation, no tenderness, full ROM, no joint enlargement and no deformity Neurology: Alert, verbal with confusion (normal for patient per NH staff hx of dementia) Psychiatry: Alert, verbal with confusion (normal for patient per NH staff hx of dementia) Skin: skin color normal Progress Note: Objective Labs Labs: CBC WBC 13.4 K/uL (4.3-9.3) H 11/14/24 05:02 RBC 3.5 M/uL (4.00-5.50) L 11/14/24 05:02 Hgb 10.1 gm/dL (12.5-15.8) L 11/14/24 05:02 Hct 31.6 % (35.9-46.7) L 11/14/24 05:02 MCV 91.5 fl (81.0-93.7) 11/14/24 05:02 MCH 29.2 pg (27.6-32.2) 11/14/24 05:02 MCHC 31.9 g/dl (33.1-35.3) L 11/14/24 05:02 RDW 15.3 % (11.4-14.2) H 11/14/24 05:02 Plt Count 302 K/uL (152-353) 11/14/24 05:02 MPV 8.8 fl (6.9-10.8) 11/14/24 05:02 Gran % 95.1 % (47.8-71.3) H 11/14/24 05:02 Lymph % (Auto) 2.4 % (20.0-43.0) L 11/14/24 05:02 [place] % (Auto) 2.3 % (3.6-9.8) L 11/14/24 05:02 Eos % (Auto) 0.0 % (0.4-2.8) L 11/14/24 05:02 Baso % (Auto) 0.2 (0.1-0.85) 11/14/24 05:02 Lymph # (Auto) 0.3 (1.1-3.1) L 11/14/24 05:02 [place] # (Auto) 0.3 (1.1-3.1) L 11/14/24 05:02 Eos # (Auto) 0.0 (0.0-0.2) 11/14/24 05:02 Baso # (Auto) 0.0 (0.0-0.1) 11/14/24 05:02 Absolute Gran (auto) 12.8 (2.3-6.0) H 11/14/24 05:02 BMP Sodium 141 mmol/L (136-145) 11/14/24 05:02 Potassium 4.6 mmol/L (3.6-5.2) 11/14/24 05:02 Chloride 110.0 mmol/L (98-107) H 11/14/24 05:02 Carbon Dioxide 18 mmol/L (21-32) L 11/14/24 05:02 Anion Gap 13.0 mEq/L (4-14) 11/14/24 05:02 BUN 34 mg/dL (7-18) H 11/14/24 05:02 Creatinine 1.2 mg/dL (0.6-1.3) 11/14/24 05:02 Estimated GFR 45.2 (>59.9) 11/14/24 05:02 Glucose 322 mg/dL (70-110) H 11/14/24 05:02 Calcium 8.2 mg/dL (8.5-10.1) L 11/14/24 05:02 Phosphorus 2.9 mg/dL (2.5-4.9) 11/14/24 05:02 Magnesium 2.3 mg/dL (1.8-2.4) 11/14/24 05:02 Total Bilirubin 0.19 mg/dL (0.0-1.0) 11/14/24 05:02 AST 24 U/L (15-37) 11/14/24 05:02 ALT 17 U/L (30-65) L 11/14/24 05:02 Alkaline Phosphatase 158 U/L (50-136) H 11/14/24 05:02 Total Protein 6.8 g/dL (6.4-8.2) 11/14/24 05:02 Albumin 2.3 g/dL (3.4-5.0) L 11/14/24 05:02 Cardiac Enzymes Troponin I High Sens 24.40 ng/L (4.0-60.4) 11/12/24 12:10 Liver Function Total Bilirubin 0.19 mg/dL (0.0-1.0) 11/14/24 05:02 AST 24 U/L (15-37) 11/14/24 05:02 ALT 17 U/L (30-65) L 11/14/24 05:02 Alkaline Phosphatase 158 U/L (50-136) H 11/14/24 05:02 Total Protein 6.8 g/dL (6.4-8.2) 11/14/24 05:02 Albumin 2.3 g/dL (3.4-5.0) L 11/14/24 05:02 Urine Urine Color Yellow (STRAW/YELL.) 11/12/24 18:20 Urine Appearance Clear (CLEAR) 11/12/24 18:20 Ur Specific [place] 1.020 (1.001-1.035) 11/12/24 18:20 Urine Protein 4+ (NEGATIVE) 11/12/24 18:20 Urine Glucose (UA) 4+ (NORMAL) 11/12/24 18:20 Urine Ketones Large (NEGATIVE) 11/12/24 18:20 Urine Occult Blood 2+ (NEG - TRACE) 11/12/24 18:20 Urine Nitrite Negative (NEGATIVE) 11/12/24 18:20 Urine Bilirubin Negative (NEGATIVE) 11/12/24 18:20 Urine Urobilinogen Normal (NORMAL) 11/12/24 18:20 Ur Leukocyte Esterase Negative (NEGATIVE) 11/12/24 18:20 Imaging Chest x-ray: Radiologist's impression: XR CHEST 2V Date of Service: 02/18/25 HISTORY: pneumonia; COMPARISON: November 12, 2024 FINDINGS: The trachea is midline. The cardiac silhouette is mildly enlarged with left-ruby ed pacemaker in place. Mild emphysema is present. There is a slightly improving multifocal pneumonia more pronounced on right side without effusion. The bony thorax is unremarkable. IMPRESSION: Slightly improving multifocal pneumonia. Progress Note: A&P Assessment and Plan (1) Pneumonia: Qualifiers: Pneumonia type: due to unspecified organism Laterality: bilateral Lung location: lower lobe of lung Qualified Code(s): J18.9 - Pneumonia, unspecified organism (2) Hypoxia: (3) AMS (altered mental status): Qualifiers: Altered mental status type: somnolence Qualified Code(s): R40.0 - Somnolence (4) Dementia: Qualifiers: Dementia type: vascular dementia Dementia severity: severe Dementia behavioral or psychological symptom: unspecified whether behavioral, psychotic, or mood disturbance or anxiety Qualified Code(s): F01.C0 - Vascular dementia, severe, without behavioral disturbance, psychotic disturbance, mood disturbance, and anxiety (5) Anemia: Qualifiers: Anemia type: unspecified type Qualified Code(s): D64.9 - Anemia, unspecified (6) Hypoalbuminemia: (7) Chronic ethmoidal sinusitis: (8) Right maxillary sinusitis: Plan Famotidine 40 mg PO DAILY Nystatin TOPICAL BID Insulin Glargine-Yfgn 25 unit SUBQ DAILY Fall Risk Details Rhodes Fall Scale Risk Level: High Fall Risk Current Medications: Current Medications Acetaminophen (Acetaminophen 500 Mg Tablet) 500 mg PO Q6H PRN PRN Reason: MILD PAIN SCALE 1-4 Albuterol Sulfate (Ipratropium/Albuterol Sulfate 3 Ml Ampul.Neb) 3 ml INH RQ4 [facility] Last Admin: 11/14/24 15:29 Dose: 3 ml Amlodipine Besylate (Amlodipine Besylate 5 Mg Tablet) 5 mg PO DAILY [facility] Last Admin: 11/14/24 09:38 Dose: 5 mg Aspirin (Aspirin 325 Mg Tablet) 325 mg PO DAILY [facility] Last Admin: 11/14/24 09:38 Dose: 325 mg Bisacodyl (Bisacodyl 10 Mg Supp.Rect) 10 mg [place] DAILY PRN PRN Reason: Constipation Enoxaparin Sodium (Enoxaparin Sodium 40 Mg/0.4 Ml Syringe) 40 mg SUBQ 1200 [facility] Last Admin: 11/14/24 12:49 Dose: 40 mg Famotidine (Famotidine 20 Mg Tablet) 40 mg PO DAILY [facility] Last Admin: 11/14/24 13:49 Dose: 40 mg Fluoxetine HCl (Fluoxetine Hcl 20 Mg Capsule) 40 mg PO DAILY [facility] Last Admin: 11/14/24 09:38 Dose: 40 mg Glimepiride (Glimepiride 2 Mg Tablet) 2 mg PO BIDWM [facility] Last Admin: 11/14/24 06:13 Dose: 2 mg Ceftriaxone Sodium 1 gm/ (Sodium Chloride) 50 mls @ 100 mls/hr IV Q24H [facility] Last Infusion: 11/14/24 06:50 Dose: Infused Vancomycin HCl 500 mg/ Sodium (Chloride) 100 mls @ 200 mls/hr IV Q12H [facility] Last Infusion: 11/14/24 16:01 Dose: Infused Albumin Human (Albumin Human 25%) 100 mls @ 60 mls/hr IV ONCE [facility] Fluconazole (Fluconazole-Nacl 200 Mg/100 Ml) 200 mg in 100 mls @ 100 mls/hr IV Q24H [facility] Last Admin: 11/14/24 09:39 Dose: 100 mls/hr Insulin Glargine-yfgn (Insulin Glargine-Yfgn 100 Unit/Ml Insuln.Pen) 20 unit SUBQ BID [facility] Last Admin: 11/14/24 10:16 Dose: 20 unit Insulin Glargine-yfgn (Insulin Glargine-Yfgn 100 Unit/Ml Insuln.Pen) 25 unit SUBQ DAILY [facility] Insulin Human Regular (Insulin Regular, Human 100 Unit/Ml) 0 unit SUBQ ACHS PRN; Protocol PRN Reason: increased blood sugar Last Admin: 11/14/24 13:17 Dose: 10 unit Losartan Potassium (Losartan Potassium 50 Mg Tablet) 100 mg PO DAILY [facility] Last Admin: 11/14/24 09:37 Dose: 100 mg Magnesium Hydroxide (Magnesium, Aluminum Hydroxide 30 Ml Oral.Susp) 30 ml PO DAILY PRN PRN Reason: gerd Memantine (Memantine Hcl 5 Mg Tablet) 10 mg PO BID [facility] Last Admin: 11/14/24 09:38 Dose: 10 mg Methylprednisolone Sodium Succinate (Methylprednisolone Sod Succ/Pf 40 Mg/Ml Vial) 40 mg INJ Q8H [facility] Last Admin: 11/14/24 12:50 Dose: 40 mg Nystatin (Nystatin 15 Gm Cream..G.) 1 gm TOPICAL Q8H [facility] Last Admin: 11/14/24 11:17 Dose: 1 gm Nystatin (Nystatin 15 Gm Powder) 0 gm TOPICAL BID [facility] Last Admin: 11/14/24 13:49 Dose: 1 gm Pantoprazole Sodium (Pantoprazole Sodium 40 Mg Tablet.Dr) 40 mg PO BID [facility] Last Admin: 11/14/24 09:39 Dose: 40 mg Rivastigmine Tartrate (Rivastigmine Tartrate 1.5 Mg Capsule) 3 mg PO BID [facility] Last Admin: 11/14/24 09:38 Dose: 3 mg Sitagliptin Phosphate (Sitagliptin Phosphate 50 Mg Tablet) 50 mg PO DAILY [facility] Last Admin: 11/14/24 09:38 Dose: 50 mg Time Spent With Patient Time: Total time spent is greater than 50% in coordination of care (as documented) at patient's floor/unit and/or counseling patient:
[2024-11-15 05:06] LABS: Basophils%(Percent) Auto 0.2 (0.1-0.85); Granulocytes % - Auto 94.9 % (47.8-71.3); Granulocytes#(Absolute)- Auto 12.5 (2.3-6.0); Hematocrit 31.2 % (35.9-46.7); Mean Corpuscular Volume 86.9 fl (81.0-93.7); Monocytes #(Absolute)- Auto 0.3 (1.1-3.1); Monocytes %(Percent)- Auto 2.2 % (3.6-9.8); Platelet Count 376 K/uL (152-353); White Blood Count 13.1 K/uL (4.3-9.3)
[2024-11-15 05:33] LABS: Potassium 4.1 mmol/L (3.6-5.2)
[2024-11-15 08:32] VITALS: BP 134/68; PULSE 109; RESP 24; TEMP 96.6
[2024-11-15] MEDS ORDERED: INSULIN GLARGINE-YFGN 100 UNIT/ML INSULN.PEN SUBQ SCH (09:00)
[2024-11-15] MEDS: INSULIN GLARGINE-YFGN 100 UNIT/ML INSULN.PEN SUBQ SCH (10:53)
--- NOTE | 2024-11-15 11:13 | Discharge Summary ---
DS: Providers Provider Date of admission: 11/12/24 08:03 Primary care physician: Omid Stratton MD Admitting clinician: Jayleen Carvalho Attending physician on admission: Minerva Kirkpatrick Consults: 11/12/24 11:46 Consult to Physical Therapy Routine Comment: Consulting Provider: Reason for consultation: worsening pneumonia Physician Instructions: postural drainage Attending physician on discharge: Minerva Kirkpatrick Discharging clinician: Minerva Kirkpatrick Anticipated date of discharge: 11/15/24 DS: Diagnosis Discharge Diagnosis (1) Pneumonia: Qualifiers: Pneumonia type: due to unspecified organism Laterality: bilateral Lung location: lower lobe of lung Qualified Code(s): J18.9 - Pneumonia, unspecified organism (2) Hypoxia: (3) AMS (altered mental status): Qualifiers: Altered mental status type: somnolence Qualified Code(s): R40.0 - Somnolence (4) Dementia: Qualifiers: Dementia type: vascular dementia Dementia severity: severe Dementia behavioral or psychological symptom: unspecified whether behavioral, psychotic, or mood disturbance or anxiety Qualified Code(s): F01.C0 - Vascular dementia, severe, without behavioral disturbance, psychotic disturbance, mood disturbance, and anxiety (5) Anemia: Qualifiers: Anemia type: unspecified type Qualified Code(s): D64.9 - Anemia, unspecified (6) Hypoalbuminemia: (7) Chronic ethmoidal sinusitis: (8) Right maxillary sinusitis: Plan Discharge patient back to [facility]. DS: Summary Hospital Course Hospital Course: This is a 84 year old female patient that presents to the ER from the care home with c/o per care home staff patient has hx of pneumonia, and RSV and her O2 sats have been 85% RA for them. On arrival to the ER here patients O2 sat was 86-90% RA. patient has a hx of dementia. Admitted patient to med/surg for further observation and treatment. Day two of hospital stay, patient stays in wheelchair most of the day, sitting at door to room watching people go by. Patient is tearful intermittently. BN- Peptide is elevated at 609. Patient O2 has been weaned down to 1Lpm NC. Nurse reports excoriated and yeast in perineum area. Breath sounds have improved from previous day, WBC is elevated. Day three of hospital stay, patient is observed to be improving. Chest X-Ray from 11/13/24 reflects "Slightly improving multifocal pneumonia." Patient will continue to be monitored and treated. Day four of hospital stay, patient has continued to improve. Chest X-Ray from today reflects "Continued improving pneumonia." Patient is ready to discharge back to [facility]. Provider recommends Speech Therapy evaluate for diet changes, Pulmonary Rehab evaluation and treatment as warranted, Physical Therapy for chest postural drainage. Patient is to continue on Vancomycin IV for infusion x7 days. Continue to encourage movement. Status at Discharge Functional status at discharge: wheelchair bound Overall status at discharge: patient is back to baseline (patient's baseline) Time Spent with Patient Time attestation: Total time spent providing and/or coordinating discharge services: Exam Exam: Patient in wheelchair holding baby doll at time of exam. Constitutional: abnormal general appearance (chronically ill), no apparent distress, abnormal body habitus (overweight), limitations noted (altered mental status) and alert Vital Signs - 24 hr 11/14/24 11:31 11/14/24 12:00 11/14/24 15:29 Temperature 97.9 F Pulse Rate [Left C arotid] 100 H Respiratory Rate 24 Blood Pressure Blood Pressure [Ri ght Arm] 138/61 Pulse Oximetry 92 L 90 L 98 Oxygen Delivery Me thod Room Air Oxygen Flow Rate 11/14/24 16:00 11/14/24 20:00 11/14/24 20:00 Temperature 97.8 F 97.6 F Pulse Rate [Left C arotid] 96 H 96 H Respiratory Rate 25 H 19 Blood Pressure Blood Pressure [Ri ght Arm] 166/66 145/63 Pulse Oximetry 91 L 92 L 91 L Oxygen Delivery Me thod Room Air Room Air Oxygen Flow Rate 11/14/24 23:36 11/15/24 04:00 11/15/24 07:46 Temperature 97.6 F 98.3 F Pulse Rate [Left C arotid] 102 H 92 H Respiratory Rate 16 18 Blood Pressure Blood Pressure [Ri ght Arm] 154/52 138/59 Pulse Oximetry 91 L 94 L Oxygen Delivery Me thod Room Air Room Air Oxygen Flow Rate 11/15/24 08:00 11/15/24 10:21 11/15/24 10:22 Temperature 96.6 F L Pulse Rate [Left C arotid] 109 H Respiratory Rate 24 Blood Pressure 134/68 134/68 Blood Pressure [Ri ght Arm] 134/68 Pulse Oximetry 92 L Oxygen Delivery Me thod Nasal Cannula Oxygen Flow Rate 2 HENMT: normocephalic, head/scalp atraumatic, hearing grossly normal bilaterally, external ears normal, nasal mucous membranes normal, external nose normal, oral mucous membranes normal and oropharynx normal Eyes: PERRL, EOMs intact bilaterally, conjunctivae normal and no scleral icterus Neck/C-Spine: visual inspection normal and trachea midline Lymph: no lymphadenopathy noted Chest: inspection of chest normal Respiratory: breath sounds equal bilaterally, normal respiratory effort, auscultation abnormal (improving) (diminished breath sound), no wheezes, no rales, no retractions, no use of accessory muscles and chest percussion normal Cardiovascular: normal heart rate noted, regular rhythm noted, no gallop, no rub, no murmur, no JVD, no clicks, peripheral pulses 2+ throughout, no bruits noted and no additional abnormal heart sounds Gastrointestinal: abdomen normal to inspection, abdomen soft to palpation, nontender to palpation, nontender to percussion, nondistended, normoactive bowel sounds, no hepatosplenomegaly, no masses, no pulsatile mass, no ascites and no hernia Genitourinary: external appearance abnormal (excoriated and yeast on perineum area - medicated) Back/Pelvis: spine normal to inspection Extremities: normal to inspection, normal to palpation, no tenderness, full ROM, no joint enlargement and no deformity Neurology: Alert, verbal with confusion (normal for patient per NH staff hx of dementia) Psychiatry: Alert, verbal with confusion (normal for patient per NH staff hx of dementia) Skin: skin color normal and skin turgor normal DS: Data Data Completed and Pending Labs on day of discharge: Labs from last 24 hours 11/15/24 11/14/24 05:00 14:49 WBC 13.1 H RBC 3.6 L Hgb 10.1 L Hct 31.2 L MCV 86.9 MCH 28.1 MCHC 32.3 L RDW 14.7 H Plt Count 376 H MPV 8.5 Gran % 94.9 H Lymph % (Auto) 2.7 L Talbot % (Auto) 2.2 L Eos % (Auto) 0.0 L Baso % (Auto) 0.2 Lymph # (Auto) 0.4 L [place] # (Auto) 0.3 L Eos # (Auto) 0.0 Baso # (Auto) 0.0 Absolute Gran (auto) 12.5 H Sodium 144 Potassium 4.1 Chloride 109.0 H Carbon Dioxide 22 Anion Gap 13.0 BUN 30 H Creatinine 1.2 Estimated GFR 45.2 Glucose 147 H Calcium 8.4 L Phosphorus 3.0 Magnesium 2.3 Total Bilirubin 0.32 AST 22 ALT 18 L Alkaline Phosphatase 153 H Total Protein 7.2 Albumin 2.6 L Vancomycin Trough 17.5 Imaging Chest x-ray: Radiologist's impression: XR CHEST 1V Date of Service: 11/12/24 HISTORY: SOB; PT WAS BROUGHT TO ER FROM [facility] WITH LOW 02. SOB. COMPARISON STUDY: 11/03/2024 TECHNIQUE: One view FINDINGS: Heart size is normal for technique. Left-sided dual lead pacemaker. Worsening bilateral infiltrates right greater than left. No pneumothorax. Hilar and mediastinal structures and bony structures are unchanged. Oxygen tubing projects over the chest. IMPRESSION: Worsening bilateral infiltrates. Follow-up recommended XR CHEST 2V Date of Service: 11/13/24 HISTORY: pneumonia; COMPARISON: November 12, 2024 FINDINGS: The trachea is midline. The cardiac silhouette is mildly enlarged with left- sided pacemaker in place. Mild emphysema is present. There is a slightly improving multifocal pneumonia more pronounced on right side without effusion. The bony thorax is unremarkable. IMPRESSION: Slightly improving multifocal pneumonia. XR CHEST 2V Date of Service: 11/15/24 HISTORY: pneumonia; COMPARISON: November 13, 2024 FINDINGS: The trachea is midline. The cardiac silhouette is mildly enlarged with left- sided pacemaker in place. There is slight improvement of multifocal pneumonia without effusion. The bony thorax is unremarkable. IMPRESSION: Continued improving pneumonia. Discharge Plan Discharge Disposition: Home, Self-Care Condition: Improved Discharge Medications: New ipratropium-albuterol 0.5 mg-3 mg(2.5 mg base)/3 mL solution for nebulization 3 ml inhalation QID Qty: 180 0RF Rx Instructions: needs neb not hand held please vancomycin in 0.9 % sodium chl 1 gram/200 mL piggyback 1 g IV Q24H Rx Instructions: pharmacy to dose for outpatient infusion for 7 days Continued alprazolam 0.5 mg tablet 0.5 mg PO Q24H PRN (Reason: anxiety) glipizide 5 mg tablet 5 mg PO BIDWM Fiasp FlexTouch U-100 Insulin 100 unit/mL (3 mL) insulin pen 1 sliding scale dose SUBCUT ACHS guaifenesin [Emily-Tussin] 100 mg/5 mL liquid 200 mg PO Q6H PRN (Reason: cough) nystatin 100,000 unit/gram powder 1 applic topical Q12H fluoxetine 40 mg capsule 40 mg PO DAILY diclofenac sodium 1 % gel 2 g TOPICAL TID Patient Comments: APPLY TO 2GM LINE AND APPLY TO PAINFUL AREAS 3 TIMES A DAY--RUB IN WELL--- docusate sodium 50 mg/5 mL liquid 100 mg PO DAILY Januvia 50 mg tablet 50 mg PO DAILY cyanocobalamin (vitamin B-12) 1,000 mcg/mL solution 1,000 mcg IM Q30D Patient Comments: DUE ON THE 7TH OF EACH MONTH Artificial Tears([id number]) Drops 1 drp ophthalmic (eye) Q6H PRN (Reason: dry eye(s)) Rx Instructions: BOTH EYES amlodipine 5 mg tablet 5 mg PO DAILY famotidine 40 mg tablet 40 mg PO DAILY losartan 100 mg tablet 100 mg PO DAILY acetaminophen [8HR Muscle Aches-Pain] 650 mg tablet extended release 650 mg PO Q6H PRN (Reason: pain) aspirin 325 mg tablet 325 mg PO DAILY rivastigmine tartrate 3 mg capsule 3 mg PO BID memantine 10 mg tablet 10 mg PO BID Changed insulin glargine [Basaglar KwikPen U-100 Insulin] 100 unit/mL (3 mL) insulin pen 25 unit SUBCUT BID Qty: 5 0RF Discontinued albuterol sulfate 90 mcg/actuation HFA aerosol inhaler 2 puff inhalation Q6H Qty: 8.5 0RF Rx Instructions: with a spacer Discharge Orders: Discharge Order (Routine); Ordered 11/15/24 Ordered By: Minerva Kirkpatrick Activity: as per physical therapy Diet Detail: discuss diet after speech evaluation as patient choking with some feedings Interventions: MED/SURG & ICU Observation Charge Sheet Last Done: 11/15/24 00:00 Activity Restrictions/Additional Instructions: speech evaluation needed for diet changes pulmonary rehab evaluation and treatment as warranted PT for chest postural drainage vancomycin IV for infusion for 7 days and pharmacy to dose encourage movement and avoid allergens and extreme temps and keep room cool Forms: Portal/Health Info Access Inst Follow-Ups: Omid Stratton MD [Primary Care Provider] -
== END 2024-11-15 12:01 | disposition home or self-care (01) ==
LOC: ED 06:03 → MS 06:03 → MERGE 08:03 → MS 10:30
PROVIDERS: ADMIT Family Medicine; ATTEND Family Medicine
DX: J32.0 Chronic maxillary sinusitis; R09.02 Hypoxemia; J32.2 Chronic ethmoidal sinusitis; E88.09 Other disorders of plasma-protein metabolism, not elsewhere classified; D64.89 Other specified anemias; R06.02 Shortness of breath; R40.0 Somnolence; F01.C0 Vascular dementia, severe, without behavioral disturbance, psychotic disturbance, mood disturbance, and anxiety; J18.9 Pneumonia, unspecified organism